=== PATIENT | female | born 1995 | race Caucasian/White ===

== ENCOUNTER → 2016-11-14 | Outpatient (CLI) | payer MEDICAID ==
[~2016-11-14] MED LIST: BACTRIM DS 8001 TA1 PO; NKHM; PYRIDIUM200 MG PO; Zofran4 MG PO
== END | disposition home or self-care (01) ==
LOC: RAD 13:33
DX: M67.432 Ganglion, left wrist (principal)

== ENCOUNTER 2017-12-01 15:37 | Emergency (ER) | payer MEDICAID ==
[~2017-12-01] VITALS: Wt 74.8 kg
[2017-12-01] MEDS ORDERED: BIRTH CONTROL PO (15:38)
[2017-12-01] MEDS ORDERED: OMNICEF300 MG PO (15:52)
== END 2017-12-01 15:55 | disposition home or self-care (01) ==
LOC: ED 15:37
DX: H65.91 Unspecified nonsuppurative otitis media, right ear (principal); Z79.899 Other long term (current) drug therapy

== ENCOUNTER → 2018-09-25 | Outpatient (CLI) | payer OTHER ==
[~2018-09-25] MED LIST changes: +BIRTH CONTROL PO; +MACROBID100 M1 PO; +OMNICEF300 MG PO
== END | disposition home or self-care (01) ==
LOC: US 10:00
DX: R59.1 Generalized enlarged lymph nodes (principal)

== ENCOUNTER 2019-02-23 19:31 | Emergency (ER) | payer OTHER ==
[~2019-02-23] VITALS: Wt 81.6 kg
[~2019-02-23 19:31] MED LIST changes: -MACROBID100 M1 PO
[2019-02-23 19:53] LABS: BILIRUBIN NEGATIVE (NEGATIVE); BLOOD TRACE-INTACT (NEGATIVE); CLARITY SL CLOUDY (CLEAR); COLOR YELLOW (YELLOW); GLUCOSE NEGATIVE (NEGATIVE); KETONE NEGATIVE (NEGATIVE); LEUKO ESTERASE TRACE (NEGATIVE); NITRITE POSITIVE (NEGATIVE); PH 5.5 (5.0-9.0); SPECIFIC GRAVITY >= 1.030 (1.005-1.030); UROBILINOGEN 0.2 E.U./dl (0.2-1.0)
[2019-02-23 19:59] LABS: BACTERIA 3+; EPITHELIAL CELLS TNTC; RBC 0-2 rbc/hpf (0-2)
[2019-02-23] MEDS ORDERED: MACROBID100 M1 PO (20:06)
[2019-02-25 22:04] LABS: GONOCOCCUS BY NAA Negative (Negative)
== END 2019-02-23 20:30 | disposition home or self-care (01) ==
LOC: ED 19:31
PROVIDERS: Physician Assistant
DX: N39.0 Urinary tract infection, site not specified (principal); F17.200 Nicotine dependence, unspecified, uncomplicated; Z79.2 Long term (current) use of antibiotics; Z79.899 Other long term (current) drug therapy

== ENCOUNTER 2019-08-22 12:34 | Emergency (ER) | payer OTHER ==
[~2019-08-22] VITALS: Ht 154.9 cm; Wt 77.1 kg
[~2019-08-22 12:34] MED LIST changes: +MACROBID100 M1 PO
[2019-08-22 13:25] LABS: BILIRUBIN NEGATIVE (NEGATIVE); BLOOD NEGATIVE (NEGATIVE); CLARITY SL CLOUDY (CLEAR); COLOR YELLOW (YELLOW); GLUCOSE NEGATIVE (NEGATIVE); KETONE NEGATIVE (NEGATIVE); PH 8.5 (5.0-9.0)
[2019-08-22 13:26] LABS: LEUKO ESTERASE NEGATIVE (NEGATIVE); NITRITE NEGATIVE (NEGATIVE); UROBILINOGEN 0.2 E.U./dl (0.2-1.0)
[2019-08-22 13:27] LABS: BACTERIA 2+
[2019-08-22 13:28] LABS: EPITHELIAL CELLS 15-20
[2019-08-22 13:29] LABS: BASO % 0.2 % (0.0-1.0); EOS # 0.1 10*3/uL (0.0-0.4); EOS % 1.1 % (1.0-4.0); HEMATOCRIT 42.8 % (37.0-47.0); HEMOGLOBIN 14.3 g/dl (12.0-16.0); LYMPH # 1.3 10*3/uL (1.3-4.4); LYMPH % 16.4 % (27.0-41.0); MEAN CELL VOLUME 95.1 fl (81.0-99.0); MEAN CORPUSCULAR HGB 31.8 pg (27.0-31.0); MEAN CORPUSCULAR HGB CONC 33.4 g/dl (33.0-37.0); MEAN PLATELET VOLUME 10.6 fl (9.6-12.3); MONO # 0.4 10*3/uL (0.1-1.0); MONO % 5.5 % (3.0-9.0); NEUT # 6.2 10*3/uL (2.3-7.9); NEUT % 76.4 % (47.0-73.0); PLATELET COUNT AUTOMATED 241 10*3/uL (130-400); RED CELL DISTRI WIDTH 11.7 % (0-14.5); WHITE BLOOD COUNT 8.1 10*3/uL (4.8-10.8)
[2019-08-22 13:43] LABS: ALBUMIN 4.1 gm/dl (3.1-4.5); ALKALINE PHOSPHATASE 63 U/L (45-117); BUN 14 mg/dl (7-24); CHLORIDE 109 mmol/L (98-107); CREATININE 0.64 mg/dL (0.55-1.02); POTASSIUM 4.1 mmol/L (3.5-5.1); SGOT/AST 11 IU/L (3-35); SGPT/ALT 22 U/L (12-78); SODIUM 140 mmol/L (136-145); TOTAL PROTEIN 7.2 gm/dL (6.4-8.2)
== END 2019-08-22 16:05 | disposition home or self-care (01) ==
LOC: ED 12:34
PROVIDERS: Emergency Medicine
DX: R10.2 Pelvic and perineal pain (principal); R10.30 Lower abdominal pain, unspecified; F17.200 Nicotine dependence, unspecified, uncomplicated

== ENCOUNTER 2020-09-12 15:25 | Emergency (ER) | payer OTHER ==
[~2020-09-12] VITALS: Ht 157.4 cm; Wt 90.7 kg
[2020-09-12 16:19] LABS: BASO % 0.1 % (0.0-1.0); EOS % 0.1 % (1.0-4.0); HEMATOCRIT 38.2 % (37.0-47.0); LYMPH # 0.9 10*3/uL (1.3-4.4); LYMPH % 11.6 % (27.0-41.0); MEAN CELL VOLUME 93.6 fl (81.0-99.0); MEAN CORPUSCULAR HGB 31.9 pg (27.0-31.0); MEAN PLATELET VOLUME 10.4 fl (9.6-12.3); MONO # 0.5 10*3/uL (0.1-1.0); MONO % 6.7 % (3.0-9.0); NEUT % 80.8 % (47.0-73.0); PLATELET COUNT AUTOMATED 178 10*3/uL (130-400); RED BLOOD COUNT 4.08 10*6/uL (4.10-5.10); RED CELL DISTRI WIDTH 12.3 % (0-14.5); WHITE BLOOD COUNT 7.4 10*3/uL (4.8-10.8)
[2020-09-12 16:40] LABS: ALBUMIN 2.2 gm/dl (3.1-4.5); ALKALINE PHOSPHATASE 144 U/L (45-117); BUN 3 mg/dl (7-24); CHLORIDE 108 mmol/L (98-107); CREATININE 0.43 mg/dL (0.55-1.02); POTASSIUM 3.6 mmol/L (3.5-5.1); SGOT/AST 43 IU/L (3-35); SGPT/ALT 96 U/L (12-78); SODIUM 139 mmol/L (136-145); TOTAL PROTEIN 6.3 gm/dL (6.4-8.2)
[2020-09-12 16:41] LABS: TROPONIN I < 0.015 ng/ml (<0.045)
== END 2020-09-12 17:57 | disposition home or self-care (01) ==
LOC: ED 15:25
PROVIDERS: Emergency Medicine
DX: O98.513 Other viral diseases complicating pregnancy, third trimester (principal); U07.1 COVID-19; Z79.899 Other long term (current) drug therapy; Z87.891 Personal history of nicotine dependence; Z3A.30 30 weeks gestation of pregnancy

== ENCOUNTER 2024-05-19 12:53 | Emergency (ER) | payer OTHER ==
[~2024-05-19] VITALS: Ht 157.4 cm; Wt 68.0 kg
[2024-05-19] MEDS ORDERED: ACETAMINOPHEN 325 MG TAB PO ONE (13:20)
[2024-05-19] MEDS ORDERED: IOHEXOL 300 MG/ML 100 ML VIAL IV ONE (13:20)
[2024-05-19 13:34] LABS: BASO % 0.2 % (0.0-1.0); EOS % 0.4 % (1.0-4.0); HEMATOCRIT 40.4 % (37.0-47.0); LYMPH # 0.6 10*3/uL (1.3-4.4); MEAN CELL VOLUME 94.8 fl (81.0-99.0); MEAN CORPUSCULAR HGB CONC 32.7 g/dl (33.0-37.0); MEAN PLATELET VOLUME 10.2 fl (9.6-12.3); MONO # 0.8 10*3/uL (0.1-1.0); MONO % 8.3 % (3.0-9.0); NEUT # 8.3 10*3/uL (2.3-7.9); NEUT % 84.8 % (47.0-73.0); PLATELET COUNT AUTOMATED 227 10*3/uL (130-400); RED BLOOD COUNT 4.26 10*6/uL (4.10-5.10); WHITE BLOOD COUNT 9.7 10*3/uL (4.8-10.8)
[2024-05-19] MEDS ORDERED: IBUPROFEN 800 MG TAB PO ONE (13:40)
[2024-05-19 13:55] LABS: BUN 11 mg/dl (9-23); CHLORIDE 107 mmol/L (98-107); POTASSIUM 3.9 mmol/L (3.4-5.1)
[2024-05-19 14:32] LABS: BILIRUBIN Negative (Negative); BLOOD Trace-Intact (Negative); CLARITY Cloudy (Clear); COLOR Yellow (Yellow); GLUCOSE Negative (Negative); KETONE Trace (Negative); LEUKO ESTERASE 3+ (Negative); NITRITE Positive (Negative); UROBILINOGEN 0.2 E.U./dl (0.0-1.0)
[2024-05-19 14:59] LABS: BACTERIA 3+; WBC TNTC wbc/hpf (0-5)
[2024-05-19] MEDS ORDERED: CIPRO500 MG PO (15:24)
[2024-05-19] MEDS ORDERED: Ceftriaxone Sodium 1 GM/10 ML SYR IV ONE (15:25)
== END 2024-05-19 16:20 | disposition home or self-care (01) ==
LOC: ED 12:53
PROVIDERS: Physician Assistant Medical
DX: N12 Tubulo-interstitial nephritis, not specified as acute or chronic (principal); R50.9 Fever, unspecified